=== PATIENT | male | born 1965 | race Caucasian/White ===

== ENCOUNTER 2017-08-20 09:05 | Emergency (ER) | payer OTHER ==
[2017-08-20] MEDS ORDERED: Ondansetron 4 MG/2 ML SDV IVPUSH ONE (09:50)
[2017-08-20] MEDS ORDERED: HYDROmorphone 2 MG/ML SDV IVPUSH ONE (09:50)
[2017-08-20] MEDS ORDERED: Ketorolac 30 MG/ML SDV IVPUSH ONE (09:51)
[2017-08-20] MEDS ORDERED: LORazepam 2 MG/ML SDV IVPUSH ONE (09:52)
[2017-08-20] MEDS ORDERED: Sodium Chloride 0.9% 1,000 ML IV SCH (10:00)
[2017-08-20] MEDS ORDERED: Acetaminophen 1,000 MG in Premix Bag 1 BAG IV ONE (10:42)
[2017-08-20] MEDS ORDERED: fentaNYL 100 MCG/2 ML SDV IVPUSH ONE (10:45)
[2017-08-20] MEDS ORDERED: Acetaminophen 500 MG Tab PO ONE (11:15)
--- NOTE | 2017-08-21 18:17 | ER ---
DATE SEEN: 08/20/2017 TIME SEEN: The patient was seen at 0918 hours in the morning. CHIEF COMPLAINT: Low back pain. HISTORY OF PRESENT ILLNESS: Craig is a 52-year-old man who had back surgery in 1991 and had recurrent back pain in 2014 and it took a year and a half before he was approved by insurance to do radiofrequency ablation surgery. He had a radiofrequency ablation performed in 11/[address] Christy and has done quite well to date. This morning he woke up with severe pain. The pain radiated down to the proximal buttocks area. It did not radiate to the knees. Denies paresis, weakness, numbness, or change in sensation of the lower extremities. Has moderate difficulty walking because he has so much pain. PAST MEDICAL HISTORY: Appendectomy, low back surgery, hernia surgery, herniated disk surgery, radiofrequency treatments of back x3. ALLERGIES: Acetaminophen, cyclobenzaprine, and propoxyphene. He has a rash with acetaminophen. MEDICATIONS: He is not taking medications at home. SOCIAL HISTORY: The patient has moved to [place]. 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 Sneed. The patient has been followed by Gina Franco, nurse practitioner, at [place]. Has marked pain presently 8 to 10/10 discomfort in the lower back. It does not radiate down his legs. PHYSICAL EXAMINATION: VITAL SIGNS: Blood pressure 152/95, heart rate 90, respirations 15, oxygen saturation 98%, temperature 36.5 degrees centigrade. HEENT: PERRLA intact. Pharynx without abnormality. The patient is well dressed. He is cooperative. He has some marked pain. Reluctant to move and he groans when he moves. NECK: Without thyromegaly or masses in the neck. LUNGS: Clear without rales, rhonchi, or wheezes. HEART: S1, S2. No irregular rate and rhythm. ABDOMEN: Soft. No abdominal discomfort. No suprapubic discomfort. Marked pain L3, L4, L5 levels. Healed scar noted. No pain radiating down his sciatic notch, is negative. EXTREMITIES: Lower extremities; sensation is intact to lower extremities. Deep tendon reflexes absent left lower extremity (they have been present since his previous injury). Right lower extremity; knee jerks and ankle jerks 1+ and slightly less than 1+. No dysesthesia or hypoesthesia, lower extremities. Straight leg raise causes increased pain in both sides. The patient was treated initially with Dilaudid 1 mg IV, Zofran 8 mg IV, 1000 mL normal saline, Ketoralac 30 mg IV. The medication did not make a difference. Lorazepam 0.5 mg IV given with minimal changes in his symptoms. Consequently, fentanyl 100 mcg was given IV and he had prompt relief. His pain went down from 8 and 9 down to a 3 or 4. Multiple efforts were made to make arrangements for him to get an MRI. It is very apparent that this is [facility]. Consequently, that arrangement would take some time to approve. I spoke to Gina Franco, nurse practitioner, whom he sees in [place] and she agreed to call and make arrangements for the MRI at [place]; however, the staff was well aware that the approval from [facility] takes several days, often a week before it is approved and consequently this order was rescinded. Consequently, the patient has been advised to take Dilaudid 1 tablet q.4 hours p.r.n. pain. Use the ibuprofen and Tylenol; 1000 of Tylenol and 600 ibuprofen q.6 hours in addition to that. Follow up with Dr. Sneed and/or follow up with Gina Franco, his nurse practitioner, in [place] to make arrangements for MRI. The patient was able to ambulate out of the ER. I sensed a great deal of frustration. His is angry that we "did not do anything". "Just do something..he needs an MRI" and I explained to her the reality and the reasons for not of not being able to complete such request. I spent a lot of time talking to the staff at [facility] and also Gina Franco to expediting possible MRI today, but the [facility] discussion was limited, because Dr. Sneed was not available, consequently I did not pursue that. Gina Franco was solicited to bring closure on this matter regarding his back. He will be following up with her this week, earlier if worse. /[id number] MARQUISE/KAMAR MTDD
== END 2017-08-20 13:29 | disposition home or self-care (01) ==
LOC: FB.ED 09:05
DX: M54.5 Low back pain (principal); Z88.8 Allergy status to other drugs, medicaments and biological substances
CPT/HCPCS: 96361; 96374; 96375; 99283; A9270; J1170; J1885; J2060; J2405; J3010; J7040

== ENCOUNTER 2018-01-18 04:29 | Emergency (ER) | payer BC, OTHER ==
[2018-01-18] MEDS ORDERED: hydrOXYzine HCl 50 MG/ML SDV IM ONE (04:49)
[2018-01-18] MEDS ORDERED: HYDROmorphone 2 MG/ML SDV IM ONE (04:49)
--- NOTE | 2018-01-18 05:55 | EDM.PDOC ---
ED HPI GENERAL MEDICAL PROBLEM - General Chief Complaint: Back Pain or Injury Stated Complaint: BACKPAIN Time Seen by Provider: 01/18/18 05:54 Source of Information: Reports: Patient History Limitations: Reports: No Limitations - History of Present Illness INITIAL COMMENTS - FREE TEXT/NARRATIVE: 52-year-old male that had discectomy in [facility] on Friday. On his way home today ,he complains of significant back pain, radiating to the left. No fever or chills/He was supposed sent home on Vistaril and gabapentin but did not get the prescriptions. Is taking Percocet with no relief. He denies any nausea vomiting or diarrhea. No fever. 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: Other Medication(s) L leg Pain Score (Numeric/FACES): 9 - Related Data Allergies Allergy/AdvReac Type Severity Reaction Status Date / Time cyclobenzaprine Allergy unknown Verified 01/18/18 04:35 [From Flexeril] propoxyphene Allergy unknown Verified 01/18/18 04:35 [From Darvocet-N] Home Meds: Home Meds Gabapentin [Neurontin] 600 mg PO TID #30 tablet 01/18/18 [Rx] Levothyroxine 25 mcg PO ACBREAKFAST 01/18/18 [History] Sertraline [Zoloft] 100 mg PO DAILY 01/18/18 [History] Suvorexant [Belsomra] 20 mg BEDTIME 01/18/18 [History] hydrOXYzine pamoate [Vistaril] 25 mg PO Q6H PRN #30 cap 01/18/18 [Rx] oxyCODONE HCl/Acetaminophen [Percocet 10-325 mg Tablet] 1 tab Q4H 01/18/18 [ History] Past Medical History HEENT History: Reports: Impaired Vision Neurological History: Reports: Migraines Psychiatric History: Reports: Depression Endocrine/Metabolic History: Reports: Hypothyroidism - Infectious Disease History Infectious Disease History: Reports: Chicken Pox - Past Surgical History HEENT Surgical History: Reports: Adenoidectomy, Tonsillectomy GI Surgical History: Reports: Appendectomy Neurological Surgical History: Reports: Discectomy, Spinal Fusion Musculoskeletal Surgical History: Reports: Other (See Below) Other Musculoskeletal Surgeries/Procedures:: back surgery x 2, Social & Family History - Family History Family Medical History: Noncontributory - Tobacco Use Years of Tobacco use: 12 Packs/Tins Daily: 0.1 - Caffeine Use Caffeine Use: Reports: Energy Drinks, Soda - Recreational Drug Use Recreational Drug Use: No ED ROS GENERAL - Review of Systems Review Of Systems: ROS reveals no pertinent complaints other than HPI. ED EXAM,LOWER BACK PAIN/INJURY - Physical Exam Exam: See Below Exam Limited By: No Limitations General Appearance: Alert, Other (Pale) Back Exam: Vertebral Tenderness Extremities: No: Normal Range of Motion Neurological: Alert, Normal Mood/Affect Course - Vital Signs Last Recorded V/S: Last Vital Signs Temp 97.5 F 01/18/18 04:29 Pulse 99 01/18/18 05:53 Resp 18 01/18/18 05:53 BP 118/89 01/18/18 05:53 Pulse Ox 98 01/18/18 05:53 - Orders/Labs/Meds Orders: Active Orders 24 hr Category Date Time Status UA W/MICROSCOPIC [URIN] Stat Lab 01/18/18 04:49 Ordered Labs: Laboratory Tests 01/18/18 01/18/18 Range/Units 04:55 04:55 WBC 10.0 (4.5-12.0) X10-3/uL RBC 5.14 (4.30-5.75) x10(6)uL Hgb 14.4 (11.5-15.5) g/dL Hct 43.2 (30.0-51.3) % MCV 83.9 (80-96) fL MCH 27.9 (27.7-33.6) pg MCHC 33.2 (32.2-35.4) g/dL RDW 13.0 (11.5-15.5) % Plt Count 385 H (125-369) X10(3)uL MPV 6.0 L (7.4-10.4) fL Neut % (Auto) 61.8 (46-82) % Lymph % (Auto) 27.1 (13-37) % [place] % (Auto) 8.3 (4-12) % Eos % (Auto) 3 (1.0-5.0) % Baso % (Auto) 0 (0-2) % Neut # (Auto) 6.3 (1.6-8.3) # Lymph # (Auto) 2.7 (0.6-5.0) # [place] # (Auto) 0.8 (0.0-1.3) # Eos # (Auto) 0.2 (0.0-0.8) # Baso # (Auto) 0.0 (0.0-0.2) # ESR 23 H (0-15) mm/hr Sodium 138 (135-145) mmol/L Potassium 4.0 (3.5-5.3) mmol/L Chloride 103 (100-110) mmol/L Carbon Dioxide 29 (21-32) mmol/L BUN 16 (7-18) mg/dL Creatinine 1.0 (0.70-1.30) mg/dL Est Cr Clr Drug Dosing 87.39 mL/min Estimated GFR (MDRD) > 60 (>60) BUN/Creatinine Ratio 16.0 (9-20) Glucose 122 H (80-116) mg/dL Calcium 8.7 (8.6-10.2) mg/dL Meds: Medications Discontinued Medications Generic Name Dose Route Start Last Admin Trade Name Freq PRN Reason Stop Dose Admin Gabapentin 600 mg 01/18/18 05:56 01/18/18 06:06 Neurontin PO 01/18/18 05:57 600 mg ONETIME ONE Administration Hydromorphone HCl 2 mg 01/18/18 04:49 01/18/18 05:04 Dilaudid IM 01/18/18 04:50 2 mg ONETIME ONE Administration Hydroxyzine HCl 50 mg 01/18/18 04:49 01/18/18 05:04 Vistaril IM 01/18/18 04:50 50 mg ONETIME ONE Administration Departure - Departure Time of Disposition: 05:54 Disposition: Home, Self-Care 01 Condition: Good Clinical Impression: Sciatica - Discharge Information Prescriptions: Gabapentin [Neurontin] 600 mg PO TID #30 tablet hydrOXYzine pamoate [Vistaril] 25 mg PO Q6H PRN #30 cap PRN Reason: Anxiety Instructions: Gabapentin capsules or tablets, Hydromorphone injection, Hydroxyzine injection, Back Pain, Adult, [id number] Referrals: PCP,Not In Area [Primary Care Provider] - Forms: ED Department Discharge Additional Instructions: Activity as tolerated. Continue medications as instructed from discharge. Follow up with Dr. Hardwick as scheduled, sooner if needed. - Problem List & Annotations (1) S/P discectomy SNOMED Code(s): 804720636, 51608851, 014975037 Code(s): Z98.890 - OTHER SPECIFIED POSTPROCEDURAL STATES Status: Acute (2) Sciatica SNOMED Code(s): 93757077 Code(s): M54.30 - SCIATICA, UNSPECIFIED SIDE Status: Acute Qualifiers: Laterality: left Qualified Code(s): M54.32 - Sciatica, left side - Problem List Review Problem List Initiated/Reviewed/Updated: Yes - My Orders Last 24 Hours: My Active Orders 01/18/18 04:49 UA W/MICROSCOPIC [URIN] Stat - Assessment/Plan Last 24 Hours: My Active Orders 01/18/18 04:49 UA W/MICROSCOPIC [URIN] Stat Plan: Patient got 1 dose of Dilaudid 2 mg, IM,that seemed to help his symptoms. I discharged him home with new prescriptions for gabapentin 600 mg 3 times a day and Vistaril to 20/5/15 grams every 6 hours when necessary
[2018-01-18] MEDS ORDERED: Gabapentin 600 MG Tab PO ONE (05:56)
== END 2018-01-18 06:09 | disposition home or self-care (01) ==
LOC: FB.ED 04:29
DX: M54.30 Sciatica, unspecified side (principal); Z88.8 Allergy status to other drugs, medicaments and biological substances
CPT/HCPCS: 36415; 80048; 85025; 85651; 96372; 99283; A9270; J1170; J3410

== ENCOUNTER 2018-01-25 22:38 | Emergency (ER) | payer BC ==
[2018-01-25] MEDS ORDERED: Ondansetron 4 MG/2 ML SDV IVPUSH ONE (22:56)
[2018-01-25] MEDS ORDERED: HYDROmorphone 2 MG/ML SDV IVPUSH ONE (22:56)
[2018-01-25] MEDS ORDERED: Sodium Chloride 0.9% 10 ML Syringe FLUSH PRN (22:56)
--- NOTE | 2018-01-25 23:06 | EDM.PDOC ---
ED HPI GENERAL MEDICAL PROBLEM - General Chief Complaint: Lower Extremity Injury/Pain Stated Complaint: general Time Seen by Provider: 01/25/18 23:01 Source of Information: Reports: Patient, Family History Limitations: Reports: No Limitations - History of Present Illness INITIAL COMMENTS - FREE TEXT/NARRATIVE: Complains of severe LLE pain since back surgery 01/12/18. Pt is s/p L5-S1 fusion at [facility] on 01/12/18, and clean out of bone fragment on 01/[address] Washington. LLE pain has progressively worsened, not controlled with Oxycontin 10mg BID and Percocet. Also complains of numbness and weakness to the left lower leg which has been ongoing since the surgery. Patient denies back pain. Denies loss of bowel or bladder control. Duration: Day(s): (13) Location: Reports: Lower Extremity, Left Severity: Severe left leg Pain Score (Numeric/FACES): 10 - Related Data Allergies Allergy/AdvReac Type Severity Reaction Status Date / Time cyclobenzaprine Allergy unknown Verified 01/25/18 22:52 [From Flexeril] propoxyphene Allergy unknown Verified 01/25/18 22:52 [From Darvocet-N] Home Meds: Home Meds Gabapentin [Neurontin] 600 mg PO TID #30 tablet 01/18/18 [Rx] Levothyroxine 25 mcg PO ACBREAKFAST 01/18/18 [History] Sertraline [Zoloft] 100 mg PO DAILY 01/18/18 [History] Suvorexant [Belsomra] 20 mg BEDTIME 01/18/18 [History] oxyCODONE HCl/Acetaminophen [Percocet 10-325 mg Tablet] 1 tab Q4H 01/18/18 [ History] methylPREDNISolone [Medrol] 4 mg PO DAILY 01/25/18 [History] oxyCODONE ER [OxyCONTIN] 10 mg PO BID PRN 01/26/18 [History] Past Medical History HEENT History: Reports: Impaired Vision Neurological History: Reports: Migraines Psychiatric History: Reports: Depression Endocrine/Metabolic History: Reports: Hypothyroidism - Infectious Disease History Infectious Disease History: Reports: Chicken Pox - Past Surgical History Neurological Surgical History: Reports: Spinal Fusion (L5-S1 (01/12/18)) Social & Family History - Family History Family Medical History: Noncontributory - Caffeine Use Caffeine Use: Reports: Energy Drinks, Soda Review of Systems - Review of Systems Review Of Systems: ROS reveals no pertinent complaints other than HPI. ED EXAM, GENERAL - Physical Exam Exam: See Below Exam Limited By: No Limitations General Appearance: Alert, WD/WN, Moderate Distress Nose: Normal Inspection Throat/Mouth: No Airway Compromise Head: Atraumatic, Normocephalic Neck: Full Range of Motion Respiratory/Chest: No Respiratory Distress Peripheral Pulses: 2+: Dorsalis Pedis (L) Back Exam: Other (Mild erythema present to low back incisions x 2, abiola in place, non-tender) Extremities: Other (tenderness present posterior left leg) Neurological: Alert, Other (decreased sensation left lower leg and dorsum of foot, mild left lower leg weakness) Psychiatric: Normal Affect Skin Exam: Warm, Dry Course - Vital Signs Last Recorded V/S: Last Vital Signs Temp 37.2 C 01/25/18 22:38 Pulse 121 H 01/25/18 22:38 Resp 20 01/25/18 22:38 BP 134/104 H 01/25/18 22:38 Pulse Ox 98 01/25/18 22:38 - Orders/Labs/Meds Orders: Active Orders 24 hr Category Date Time Status Lumbar Spine wo Cont [CT] Stat Exams 01/25/18 22:57 Taken VL Duplex Lwr Ext Veins Ltd Lt [US] Stat Exams 01/25/18 22:57 Taken Sodium Chloride 0.9% [Saline Flush] Med 01/25/18 22:56 Active 10 ml FLUSH ASDIRECTED PRN Saline Lock Insert [OM.PC] Routine Oth 01/25/18 22:56 Ordered Medication Orders Sodium Chloride (Saline Flush) 10 ml FLUSH ASDIRECTED PRN PRN Reason: Keep Vein Open Last Admin: 01/25/18 23:02 Dose: 10 ml Labs: Laboratory Tests 01/25/18 01/25/18 01/25/18 Range/Units 23:10 23:10 23:10 WBC 16.1 H (4.5-12.0) X10-3/uL RBC 4.87 (4.30-5.75) x10(6)uL Hgb 14.0 (11.5-15.5) g/dL Hct 41.1 (30.0-51.3) % MCV 84.4 (80-96) fL MCH 28.8 (27.7-33.6) pg MCHC 34.2 (32.2-35.4) g/dL RDW 13.2 (11.5-15.5) % Plt Count 520 H (125-369) X10(3)uL MPV 5.8 L (7.4-10.4) fL Neut % (Auto) 76.9 (46-82) % Lymph % (Auto) 15.8 (13-37) % [place] % (Auto) 5.8 (4-12) % Eos % (Auto) 1 (1.0-5.0) % Baso % (Auto) 0 (0-2) % Neut # (Auto) 12.5 H (1.6-8.3) # Lymph # (Auto) 2.5 (0.6-5.0) # [place] # (Auto) 0.9 (0.0-1.3) # Eos # (Auto) 0.2 (0.0-0.8) # Baso # (Auto) 0.0 (0.0-0.2) # Sodium 139 (135-145) mmol/L Potassium 4.0 (3.5-5.3) mmol/L Chloride 102 (100-110) mmol/L Carbon Dioxide 28 (21-32) mmol/L BUN 21 H (7-18) mg/dL Creatinine 1.1 (0.70-1.30) mg/dL Est Cr Clr Drug Dosing TNP Estimated GFR (MDRD) > 60 (>60) BUN/Creatinine Ratio 19.1 (9-20) Glucose 151 H (80-116) mg/dL Calcium 9.0 (8.6-10.2) mg/dL C-Reactive Protein < 0.2 L (0.5-0.9) mg/dL Meds: Medications Generic Name Dose Route Start Last Admin Trade Name Freq PRN Reason Stop Dose Admin Sodium Chloride 10 ml 01/25/18 22:56 01/25/18 23:02 Saline Flush FLUSH 10 ml ASDIRECTED PRN Administration Keep Vein Open Discontinued Medications Generic Name Dose Route Start Last Admin Trade Name Freq PRN Reason Stop Dose Admin Dexamethasone 10 mg 01/26/18 01:00 01/26/18 01:05 Dexamethasone IVPUSH 01/26/18 01:01 10 mg ONETIME ONE Administration Hydromorphone HCl 2 mg 01/25/18 22:56 01/25/18 23:03 Dilaudid IVPUSH 01/25/18 22:57 2 mg ONETIME ONE Administration Hydromorphone HCl 1 mg 01/26/18 00:27 01/26/18 00:35 Dilaudid IVPUSH 01/26/18 00:28 1 mg ONETIME ONE Administration Sodium Chloride 1,000 mls @ 999 mls/hr 01/25/18 23:07 01/25/18 23:12 Normal Saline IV 01/26/18 00:07 999 mls/hr .BOLUS ONE Administration Ketorolac Tromethamine 30 mg 01/26/18 01:01 01/26/18 01:05 Toradol IVPUSH 01/26/18 01:02 30 mg ONETIME ONE Administration Ondansetron HCl 4 mg 01/25/18 22:56 01/25/18 23:03 Zofran IVPUSH 01/25/18 22:57 4 mg ONETIME ONE Administration - Radiology Interpretation Free Text/Narrative:: LLE Venous US Doppler: no DVT. L-spine CT w/o contrast: Hardware intact, no acute abnormalities. Left nephrolithiasis. - Re-Assessments/Exams Free Text/Narrative Re-Assessment/Exam: 01/26/18 01:[address] Washington ([facility]), recommends Decadron 10mg IV, Toradol 30mg IV and increasing the Oxycontin to 20mg BID. He will follow up with the patient in clinic on 01/27/18. 01/26/18 01:34 Patient reports significant improvement after Decadron and Toradol. Departure - Departure Time of Disposition: 01:35 Disposition: Home, Self-Care 01 Condition: Good Clinical Impression: Left sided sciatica - Discharge Information *PRESCRIPTION DRUG MONITORING PROGRAM REVIEWED*: Yes *COPY OF PRESCRIPTION DRUG MONITORING REPORT IN PATIENT BRYAN: Not Applicable Instructions: Sciatica, [id number] Referrals: PCP,Not In Area [Primary Care Provider] - Forms: ED Department Discharge Additional Instructions: Increase Oxycontin to 20mg twice a day. Continue Percocet for breakthrough pain. Continue Gabapentin. Follow up with Dr. Washington on 01/27/18. - My Orders Last 24 Hours: My Active Orders 01/25/18 22:56 Sodium Chloride 0.9% [Saline Flush] 10 ml FLUSH ASDIRECTED PRN Saline Lock Insert [OM.PC] Routine 01/25/18 22:57 Lumbar Spine wo Cont [CT] Stat VL Duplex Lwr Ext Veins Ltd Lt [US] Stat - Assessment/Plan Last 24 Hours: My Active Orders 01/25/18 22:56 Sodium Chloride 0.9% [Saline Flush] 10 ml FLUSH ASDIRECTED PRN Saline Lock Insert [OM.PC] Routine 01/25/18 22:57 Lumbar Spine wo Cont [CT] Stat VL Duplex Lwr Ext Veins Ltd Lt [US] Stat
[2018-01-25] MEDS ORDERED: Sodium Chloride 0.9% 1,000 ML IV ONE (23:07)
[2018-01-26] MEDS ORDERED: HYDROmorphone 2 MG/ML SDV IVPUSH ONE (00:27)
[2018-01-26] MEDS ORDERED: Dexamethasone 4 MG/ML SDV IVPUSH ONE (01:00)
[2018-01-26] MEDS ORDERED: Ketorolac 30 MG/ML SDV IVPUSH ONE (01:01)
--- NOTE | 2018-01-27 11:46 | US ---
INDICATION: Left leg pain. DUPLEX ULTRASOUND, LEFT LOWER EXTREMITY VEINS: Utilizing 2-D real time, duplex Doppler spectral analysis and color flow imaging, examination of the left lower extremity veins revealed no evidence of deep venous thrombosis or obstruction. Compression views showed no abnormal lack of compression to suggest thrombosis. The valves were not evaluated for competence. IMPRESSION: Duplex ultrasound, left lower extremity veins, shows no evidence of deep venous thrombosis. MTDD
== END 2018-01-26 01:42 | disposition home or self-care (01) ==
LOC: FB.ED 22:38
DX: M54.32 Sciatica, left side (principal); N20.0 Calculus of kidney; E03.9 Hypothyroidism, unspecified; Z88.8 Allergy status to other drugs, medicaments and biological substances; Z79.899 Other long term (current) drug therapy; Z98.1 Arthrodesis status
CPT/HCPCS: 36415; 72131; 80048; 85025; 86140; 93971; 96361; 96374; 96375; 96376; 99284; J1100; J1170; J1885; J2405; J7030; J7050

== ENCOUNTER 2020-09-19 22:38 | Emergency (ER) | payer BC, OTHER ==
[2020-09-19] MEDS ORDERED: HYDROmorphone 2 MG/ML SDV IVPUSH STA (22:47)
[2020-09-19] MEDS ORDERED: Sodium Chloride 0.9% 10 ML Syringe FLUSH PRN (22:47)
[2020-09-19] MEDS ORDERED: Ketorolac 30 MG/ML SDV IVPUSH STA (22:47)
[2020-09-19] MEDS ORDERED: tiZANidine 4 MG Tab PO STA (22:47)
--- NOTE | 2020-09-19 23:21 | EDM.PDOC ---
ED HPI GENERAL MEDICAL PROBLEM - General Stated Complaint: Low back pain Time Seen by Provider: 09/19/20 22:55 Source of Information: Reports: Patient, Family History Limitations: Reports: No Limitations - History of Present Illness INITIAL COMMENTS - FREE TEXT/NARRATIVE: Patient presented to the ED because of low back pain which started 2 weeks ago. He has a history of chronic low back pain and he underwent discectomy, and ablation which helped for 1-2 years but pain came back again. There is no lost of bowel or bladder control and he rates his pain 10/10. Lower Back Pain Score (Numeric/FACES): 10 - Related Data Allergies Allergy/AdvReac Type Severity Reaction Status Date / Time cyclobenzaprine Allergy unknown Verified 01/25/18 22:52 [From Flexeril] propoxyphene Allergy unknown Verified 01/25/18 22:52 [From Darvocet-N] Home Meds: Home Meds Gabapentin [Neurontin] 600 mg PO TID #30 tablet 01/18/18 [Rx] Levothyroxine 25 mcg PO ACBREAKFAST 01/18/18 [History] Sertraline [Zoloft] 100 mg PO DAILY 01/18/18 [History] Suvorexant [Belsomra] 20 mg BEDTIME 01/18/18 [History] oxyCODONE HCl/Acetaminophen [Percocet 10-325 mg Tablet] 1 tab Q4H 01/18/18 [History] methylPREDNISolone [Medrol] 4 mg PO DAILY 01/25/18 [History] oxyCODONE ER [OxyCONTIN] 10 mg PO BID PRN 01/26/18 [History] traMADol [Ultram] 100 mg PO Q8H PRN #30 tab 09/19/20 [Rx] Past Medical History HEENT History: Reports: Impaired Vision Neurological History: Reports: Migraines Psychiatric History: Reports: Depression Endocrine/Metabolic History: Reports: Hypothyroidism - Infectious Disease History Infectious Disease History: Reports: Chicken Pox - Past Surgical History Neurological Surgical History: Reports: Spinal Fusion (L5-S1 (01/12/18)) Social & Family History - Family History Family Medical History: No Pertinent Family History - Caffeine Use Caffeine Use: Reports: Energy Drinks, Soda ED ROS GENERAL - Review of Systems Review Of Systems: See Below Constitutional: Reports: No Symptoms HEENT: Reports: No Symptoms Respiratory: Reports: No Symptoms Cardiovascular: Reports: No Symptoms Endocrine: Reports: No Symptoms GI/Abdominal: Reports: No Symptoms : Reports: No Symptoms Musculoskeletal: Reports: Back Pain Skin: Reports: No Symptoms Neurological: Reports: No Symptoms Psychiatric: Reports: No Symptoms ED EXAM,LOWER BACK PAIN/INJURY - Physical Exam Exam: See Below Exam Limited By: No Limitations General Appearance: Alert, No Apparent Distress Ears: Normal External Exam, Normal Canal Nose: Normal Inspection, Normal Mucosa Throat/Mouth: Normal Inspection, Normal Lips, Normal Teeth Head: Atraumatic, Normocephalic Neck: Normal Inspection, Supple, Non-Tender, Full Range of Motion Respiratory/Chest: No Respiratory Distress, Lungs Clear, Normal Breath Sounds, No Accessory Muscle Use, Chest Non-Tender Cardiovascular: Normal Peripheral Pulses, Regular Rate, Rhythm, No Edema, No Gallop, No JVD, No Murmur, No Rub GI/Abdominal: Normal Bowel Sounds, Soft, Non-Tender, No Organomegaly Back Exam: Normal Inspection, Muscle Spasm, Vertebral Tenderness Extremities: Normal Inspection, Normal Range of Motion Neurological: Alert, Normal Mood/Affect, Normal Dorsiflexion Course - Vital Signs Text/Narrative:: Toradol 30 mg IV x1 Dilaudid 2 mg IV x1 Zanaflex 4 mg PO x1 Last Recorded V/S: Last Vital Signs Temp 36.9 C 09/19/20 22:53 Pulse 88 09/19/20 22:53 Resp 18 09/19/20 22:53 BP 148/88 H 09/19/20 22:53 Pulse Ox 97 09/19/20 22:53 - Orders/Labs/Meds Orders: Active Orders 24 hr Category Date Time Status Sodium Chloride 0.9% [Saline Flush] Med 09/19/20 22:47 Active 10 ml FLUSH ASDIRECTED PRN Saline Lock Insert [OM.PC] Routine Oth 09/19/20 22:47 Ordered Medication Orders Sodium Chloride (Sodium Chloride 0.9% 10 Ml Syringe) 10 ml FLUSH ASDIRECTED PRN PRN Reason: Keep Vein Open Meds: Medications Generic Name Dose Route Start Last Admin Trade Name Freq PRN Reason Stop Dose Admin Sodium Chloride 10 ml 09/19/20 22:47 Sodium Chloride 0.9% 10 Ml Syringe FLUSH ASDIRECTED PRN Keep Vein Open Discontinued Medications Generic Name Dose Route Start Last Admin Trade Name Freq PRN Reason Stop Dose Admin Hydromorphone HCl 2 mg 09/19/20 22:47 09/19/20 23:07 Hydromorphone 2 Mg/Ml Sdv IVPUSH 09/19/20 22:48 2 mg NOW STA Administration Ketorolac Tromethamine 30 mg 09/19/20 22:47 09/19/20 23:06 Ketorolac 30 Mg/Ml Sdv IVPUSH 09/19/20 22:48 30 mg NOW STA Administration Tizanidine HCl 4 mg 09/19/20 22:47 09/19/20 23:07 Tizanidine 4 Mg Tab PO 09/19/20 22:48 4 mg NOW STA Administration Departure - Departure Time of Disposition: 23:45 Disposition: Home, Self-Care 01 Condition: Good Clinical Impression: Low back pain Sciatica Qualifiers: Laterality: left Qualified Code(s): M54.32 - Sciatica, left side - Discharge Information Prescriptions: traMADol [Ultram] 100 mg PO Q8H PRN #30 tab PRN Reason: Pain Instructions: Sciatica, [id number], Chronic Back Pain, [id number] Additional Instructions: Please read discharge instructions on Chronic low back pain and sciatica Continue all you medications Take tramadol 100 mg with tylenol 1000 mg and ibuprofen 800 mg every 8 hours as needed for pain. Take them all at the same time for better pain relief. Follow up with your doctor so you can be referred to the Pain Specialist Sepsis Event Note (ED) - Evaluation Sepsis Screening Result: No Definite Risk - Focused Exam Vital Signs: Vital Signs Temp Pulse Resp BP Pulse Ox 09/19/20 22:53 36.9 C 88 18 148/88 H 97 - My Orders Last 24 Hours: My Active Orders 09/19/20 22:47 Sodium Chloride 0.9% [Saline Flush] 10 ml FLUSH ASDIRECTED PRN Saline Lock Insert [OM.PC] Routine - Assessment/Plan Last 24 Hours: My Active Orders 09/19/20 22:47 Sodium Chloride 0.9% [Saline Flush] 10 ml FLUSH ASDIRECTED PRN Saline Lock Insert [OM.PC] Routine
== END 2020-09-19 23:45 | disposition home or self-care (01) ==
LOC: FB.ED 22:38
DX: M54.42 Lumbago with sciatica, left side (principal); E03.9 Hypothyroidism, unspecified; Z88.6 Allergy status to analgesic agent; Z88.8 Allergy status to other drugs, medicaments and biological substances; Z79.899 Other long term (current) drug therapy
CPT/HCPCS: 96374; 96375; 99283-25; A9270-GY; J1170; J1885